=== PATIENT | female | born 1960 | race Caucasian/White ===

== ENCOUNTER 2016-07-25 18:48 | Emergency (ER) | payer MEDICARE, MEDICAID ==
[2016-07-25 19:05] VITALS: BP 142/99
--- NOTE | 2016-07-25 19:11 | ER Document Report ---
Addendum entered and electronically signed by CARLA MANNING NP 19:18: Doctor's Note Notes: 07/25/16 19:18 Patient's daughter was in the emergency room stated that she would be responsible for the patient. Patient is only had 2 mg of Benadryl. Patient is signed out AMA Original Note: ED Medical Screen (RME) - General Stated Complaint: PSYCH EVAL Time seen by provider: 19:07 Mode of Arrival: Ambulatory Information source: Patient Notes: 56-year-old female presents to ED states she needs to talk to a psychiatrist. Stated she was really upset earlier took 2 sleeping pills and made a common at of killing herself and she is okay now she states. Patient says she is fine now and would like to go home. She states she just buried her dad on Tuesday. She said her sister's called and stated that her father who was with the head this inherited her so that it would not mess up her social security and the sister's inherited all the money. States she's just been feeling "left out"and now she has to live without the rest of her life her sister on that in her face. She states she had mated multiple text statements but now she is done everybody she's fine. Her daughter is with her at this time. She states she already talked to the police and they told her that was fine. I have greeted and performed a rapid initial assessment of this patient. A comprehensive ED assessment and evaluation of the patient, analysis of test results and completion of medical decision making process will be conducted by an additional ED providers. TRAVEL OUTSIDE OF THE [place] IN LAST 30 DAYS: No - Related Data Allergies/Adverse Reactions: haloperidol [From Haldol] Allergy (Verified 07/25/16 19:06) haloperidol lactate [From Haldol] Allergy (Verified 07/25/16 19:06) Past Medical History - Past Medical History Cardiac Medical History: Reports: Hx Heart Attack - 2003 Denies: Hx Coronary Artery Disease, Hx Hypertension Pulmonary Medical History: Reports: Hx Asthma, Hx COPD Denies: Hx Bronchitis, Hx Pneumonia Neurological Medical History: Reports: Hx Cerebrovascular Accident - left sided weakness 2003. Denies: Hx Seizures GI Medical History: Reports: Hx Hiatal Hernia Musculoskeltal Medical History: Denies Hx Arthritis Psychiatric Medical History: Reports: Hx Depression Past Surgical History: Reports: Hx Cholecystectomy, Hx Hysterectomy - Immunizations Hx Diphtheria, Pertussis, Tetanus Vaccination: No Physical Exam - Vital signs Vitals: Temp Pulse Resp BP Pulse Ox 98.4 F 118 H 18 142/99 H 97 07/25/16 19:04 07/25/16 19:04 07/25/16 19:04 07/25/16 19:04 07/25/16 19:04 Course - Vital Signs Vital signs: Temp Pulse Resp BP Pulse Ox 98.4 F 118 H 18 142/99 H 97 07/25/16 19:04 07/25/16 19:04 07/25/16 19:04 07/25/16 19:04 07/25/16 19:04
== END 2016-07-25 19:18 | disposition left against medical advice (07) ==
LOC: ER 18:48
DX: Z53.9 Procedure and treatment not carried out, unspecified reason (principal); R45.851 Suicidal ideations
CPT/HCPCS: 99283

== ENCOUNTER → 2016-09-09 | Outpatient (CLI) | payer MEDICARE, MEDICAID | LOC: OD 15:24 | PROVIDERS: ATTEND Internal Medicine | DX: M79.672 Pain in left foot (principal) ==

== ENCOUNTER → 2016-09-16 | Outpatient (CLI) | payer MEDICARE, MEDICAID | LOC: WI 13:51 | PROVIDERS: ATTEND Internal Medicine | DX: Z12.31 Encounter for screening mammogram for malignant neoplasm of breast (principal) | CPT/HCPCS: 77067; G0202 ==

== ENCOUNTER → 2016-11-18 | Outpatient (CLI) | payer MEDICARE, MEDICAID ==
[2016-11-18 12:22] LABS: ABSOLUTE BASOPHILS # (AUTO) 0.1 10^3/uL (0.0-0.2); ABSOLUTE EOSINOPHILS # (AUTO) 0.1 10^3/uL (0.0-0.6); ABSOLUTE LYMPHOCYTES (AUTO) 1.6 10^3/uL (0.5-4.7); ABSOLUTE MONOCYTES (AUTO) 0.4 10^3/uL (0.1-1.4); ABSOLUTE NEUT (AUTO) 3.9 10^3/uL (1.7-8.2); EOSINOPHILS % (AUTO) 1.2 % (0-6); HEMATOCRIT 41.6 % (36.0-47.0); HEMOGLOBIN 13.3 g/dL (12.0-15.5); HGB HCT DIFFERENCE -1.7; LYMPHOCYTES % (AUTO) 26.2 % (13-45); MEAN CORPUSCULAR HEMOGLOBIN 28.9 pg (27.0-33.4); MEAN CORPUSCULAR HGB CONC 32.1 g/dL (32.0-36.0); MEAN CORPUSCULAR VOLUME 90 fl (80-97); MONOCYTES % (AUTO) 6.2 % (3-13); RED BLOOD COUNT 4.62 10^6/uL (3.72-5.28); RED CELL DISTRIBUTION WIDTH 13.1 % (11.5-14.0); SEGMENTED NEUTROPHILS % (AUTO) 65.4 % (42-78)
[2016-11-18 12:48] LABS: ALANINE AMINOTRANSFERASE 20 U/L (9-52); ALBUMIN 4.1 g/dL (3.5-5.0); ALKALINE PHOSPHATASE 78 U/L (38-126); ANION GAP 11 (5-19); ASPARTATE AMINO TRANSFERASE 22 U/L (14-36); BILIRUBIN,DIRECT 0.3 mg/dL (0.0-0.4); BILIRUBIN,TOTAL 0.6 mg/dL (0.2-1.3); BLOOD UREA NITROGEN 9 mg/dL (7-20); CALCIUM 9.5 mg/dL (8.4-10.2); CARBON DIOXIDE 23 mmol/L (22-30); CHLORIDE 110 mmol/L (98-107); CHOLESTEROL 206.02 mg/dL (0-200); CREATININE RESULT 0.79 mg/dL (0.52-1.25); Direct HDL 53 mg/dL (>40); GLUCOSE 98 mg/dL (75-110); POTASSIUM 4.5 mmol/L (3.6-5.0); SODIUM 143.5 mmol/L (137-145); TOTAL PROTEIN 7.2 g/dL (6.3-8.2); TRIGLYCERIDES 122 mg/dL (<150)
[2016-11-18 13:03] LABS: DIRECT LDL 119 mg/dL (<100)
== END ==
LOC: OD 10:32
PROVIDERS: ATTEND Physician Assistant Medical
DX: R07.9 Chest pain, unspecified (principal); R55 Syncope and collapse; I10 Essential (primary) hypertension; R00.1 Bradycardia, unspecified; R00.2 Palpitations; R06.00 Dyspnea, unspecified
CPT/HCPCS: 36415; 80053; 80061; 85025; 86430

== ENCOUNTER → 2017-03-03 | Outpatient (CLI) | payer MEDICARE, MEDICAID ==
--- NOTE | 2017-03-03 10:23 | WOMENS IMAGING REPORT ---
EXAM DESCRIPTION: 3D DX MAMMO BILAT; U/S BREAST UNILAT LIMITED COMPLETED DATE/TIME: 03/03/2017 9:08 am; 03/03/2017 10:06 am REASON FOR STUDY: UNSPECIFIED LUMP IN BREAST; N63; RT BREAST LUMP, N63 COMPARISON: 09/16/2016 and 08/05/2015. TECHNIQUE: Standard craniocaudal and mediolateral oblique views of each breast recorded using digita l acquisition and breast tomosynthesis. Additional true lateral images of the right breast acquired with tomosynthesis. LIMITATIONS: None. FINDINGS: RIGHT BREAST MASSES: No suspicious masses. CALCIFICATIONS: No new or suspicious calcifications. ARCHITECTURAL DISTORTION: None. DEVELOPING DENSITY: None. ASYMMETRY: None noted. OTHER: No other significant findings. LEFT BREAST MASSES: No suspicious masses. CALCIFICATIONS: No new or suspicious calcifications. ARCHITECTURAL DISTORTION: None. DEVELOPING DENSITY: None. ASYMMETRY: None noted. OTHER: No other significant finding. Read with the assistance of CAD: .[facility] - R2 Cenova Version 1.3 .[facility] - R2 Cenova Version 1.3 .[facility] - R2 Cenova Version 2.4 .[facility] - R2 Cenova Version 2.4 .[facility] - R2 Compound Specialist Version 9.2 BREAST ULTRASOUND: TECHNIQUE: Static and dynamic grayscale images acquired of the right breast in the specific areas of clinical/mammographic concern. Selected color Doppler images recorded. ELASTOGRAPHY PERFORMED: No. LIMITATIONS: None. FINDINGS: MASS: No mass identified. Normal glandular tissue. ELASTOGRAPHY CHARACTERISTICS: Not applicable. OTHER: No other significant finding. IMPRESSION: Stable mammographic appearance of both breasts. No worrisome mammographic or sonographi c findings in the right breast in the area of concern. BREAST DENSITY: c. The breasts are heterogeneously dense, which may obscure small masses. BIRAD: 2 Benign findings. RECOMMENDATION: RECOMMENDED FOLLOW UP: Birads 1 or 2: No breast imaging finding to explain the patie nt's presenting complaint. Further intervention should be based on the degree of clinical suspicion. SPECIFIC INTERVENTION/IMAGING/CONSULTATION RECOMMENDED:No additional intervention/ imaging/consultati on needed at this time. COMMUNICATION:The negative/benign results were communicated to the patient. COMMENT: The patient has been notified of the results by letter per SA requirements. Additional no tification policies are in place for contacting patient with suspicious or incomplete findings. Quality ID #[id number]: The [employer] recommends an annual screening mammogram for women aged 40 years or over. This facility utilizes a reminder system to ensure that all patients receive reminder letters, and/or direct phone calls for appointments. This includes reminders for routine scr eening mammograms, diagnostic mammograms, or other Breast Imaging Interventions when appropriate. Th is patient will be placed in the appropriate reminder system. The [place] [employer] (ACR) has developed recommendations for screening MRI of the breast s in certain patient populations, to be used in conjunction with mammography. Breast MRI surveillanc e may be appropriate for women with more than 20% lifetime risk of developing breast cancer as deter mined by genetic testing, significant family history of the disease, or history of mantle radiation f or Hodgkins Disease. ACR Practice Guidelines 2008. DBT Technology DBT is a type of tomographic mammography. With conventional mammography, overlapping breast tissue ma y make lesions difficult to detect, even with good compression. DBT uses an x-ray tube that rotates a round the breast, taking images at different angles. These images are then combined to create thin sl ices of the breast that the radiologist can view as a 3D reconstruction. The TRIXand[employer] unit can perform full-field digital mammograms (2D imaging); or DBT (3D imaging); or both, in a combination mode that quickly performs both the mammogram and the tomosynthesis scan while the breast is still compressed. PQRS 6045F: Fluoroscopic imaging is not utilized for breast tomosynthesis. TECHNICAL DOCUMENTATION: FINDING NUMBER: (1) ASSESSMENT: (1) JOB ID: [id number] [employer]- All Rights Reserved
--- NOTE | 2017-03-03 10:23 | WOMENS IMAGING REPORT ---
EXAM DESCRIPTION: 3D DX MAMMO BILAT; U/S BREAST UNILAT LIMITED COMPLETED DATE/TIME: 03/03/2017 9:08 am; 03/03/2017 10:06 am REASON FOR STUDY: UNSPECIFIED LUMP IN BREAST; N63; RT BREAST LUMP, N63 COMPARISON: 09/16/2016 and 08/05/2015. TECHNIQUE: Standard craniocaudal and mediolateral oblique views of each breast recorded using digita l acquisition and breast tomosynthesis. Additional true lateral images of the right breast acquired with tomosynthesis. LIMITATIONS: None. FINDINGS: RIGHT BREAST MASSES: No suspicious masses. CALCIFICATIONS: No new or suspicious calcifications. ARCHITECTURAL DISTORTION: None. DEVELOPING DENSITY: None. ASYMMETRY: None noted. OTHER: No other significant findings. LEFT BREAST MASSES: No suspicious masses. CALCIFICATIONS: No new or suspicious calcifications. ARCHITECTURAL DISTORTION: None. DEVELOPING DENSITY: None. ASYMMETRY: None noted. OTHER: No other significant finding. Read with the assistance of CAD: .[facility] - R2 Cenova Version 1.3 .[facility] - R2 Cenova Version 1.3 .[facility] - R2 Cenova Version 2.[address] - R2 Cenova Version 2.4 .[facility] - R2 Steel Floor Pan Placing Supervisor Version 9.2 BREAST ULTRASOUND: TECHNIQUE: Static and dynamic grayscale images acquired of the right breast in the specific areas of clinical/mammographic concern. Selected color Doppler images recorded. ELASTOGRAPHY PERFORMED: No. LIMITATIONS: None. FINDINGS: MASS: No mass identified. Normal glandular tissue. ELASTOGRAPHY CHARACTERISTICS: Not applicable. OTHER: No other significant finding. IMPRESSION: Stable mammographic appearance of both breasts. No worrisome mammographic or sonographi c findings in the right breast in the area of concern. BREAST DENSITY: c. The breasts are heterogeneously dense, which may obscure small masses. BIRAD: 2 Benign findings. RECOMMENDATION: RECOMMENDED FOLLOW UP: Birads 1 or 2: No breast imaging finding to explain the patie nt's presenting complaint. Further intervention should be based on the degree of clinical suspicion. SPECIFIC INTERVENTION/IMAGING/CONSULTATION RECOMMENDED:No additional intervention/ imaging/consultati on needed at this time. COMMUNICATION:The negative/benign results were communicated to the patient. COMMENT: The patient has been notified of the results by letter per SA requirements. Additional no tification policies are in place for contacting patient with suspicious or incomplete findings. Quality ID #[id number]: The [employer] recommends an annual screening mammogram for women aged 40 years or over. This facility utilizes a reminder system to ensure that all patients receive reminder letters, and/or direct phone calls for appointments. This includes reminders for routine scr eening mammograms, diagnostic mammograms, or other Breast Imaging Interventions when appropriate. Th is patient will be placed in the appropriate reminder system. The [employer] (ACR) has developed recommendations for screening MRI of the breast s in certain patient populations, to be used in conjunction with mammography. Breast MRI surveillanc e may be appropriate for women with more than 20% lifetime risk of developing breast cancer as deter mined by genetic testing, significant family history of the disease, or history of mantle radiation f or Hodgkins Disease. ACR Practice Guidelines 2008. DBT Technology DBT is a type of tomographic mammography. With conventional mammography, overlapping breast tissue ma y make lesions difficult to detect, even with good compression. DBT uses an x-ray tube that rotates a round the breast, taking images at different angles. These images are then combined to create thin sl ices of the breast that the radiologist can view as a 3D reconstruction. The [employer] unit can perform full-field digital mammograms (2D imaging); or DBT (3D imaging); or both, in a combination mode that quickly performs both the mammogram and the tomosynthesis scan while the breast is still compressed. PQRS 6045F: Fluoroscopic imaging is not utilized for breast tomosynthesis. TECHNICAL DOCUMENTATION: FINDING NUMBER: (1) ASSESSMENT: (1) JOB ID: [id number] [employer]- All Rights Reserved
== END ==
LOC: WI 09:29
PROVIDERS: ATTEND Surgery
DX: N63 Unspecified lump in breast (principal)
CPT/HCPCS: 76642; G0279; G0204; 77062; 77066

== ENCOUNTER 2017-03-04 16:46 | Inpatient (IN) | payer MEDICARE, MEDICAID ==
[2017-03-04] MEDS ORDERED: LORAZEPAM 1 MG TABLET ONE (18:10)
[2017-03-04 18:18] LABS: HEMOGLOBIN 12.3 g/dL (12.0-15.5); HGB HCT DIFFERENCE 0.9; MEAN CORPUSCULAR HEMOGLOBIN 29.8 pg (27.0-33.4); MEAN CORPUSCULAR HGB CONC 34.2 g/dL (32.0-36.0); MEAN CORPUSCULAR VOLUME 87 fl (80-97); RED BLOOD COUNT 4.13 10^6/uL (3.72-5.28); RED CELL DISTRIBUTION WIDTH 13.8 % (11.5-14.0); WHITE BLOOD COUNT 6.7 10^3/uL (4.0-10.5)
[2017-03-04] MEDS ORDERED: LORAZEPAM 1 MG TABLET PO ONE (18:45)
[2017-03-04 18:46] LABS: ALANINE AMINOTRANSFERASE 30 U/L (9-52); ALKALINE PHOSPHATASE 76 U/L (38-126); AMYLASE 47 U/L (30-110); ANION GAP 12 (5-19); ASPARTATE AMINO TRANSFERASE 33 U/L (14-36); BILIRUBIN,DIRECT 0.3 mg/dL (0.0-0.4); BILIRUBIN,TOTAL 0.5 mg/dL (0.2-1.3); BLOOD UREA NITROGEN 7 mg/dL (7-20); CALCIUM 9.7 mg/dL (8.4-10.2); CARBON DIOXIDE 23 mmol/L (22-30); CHLORIDE 107 mmol/L (98-107); CREATININE RESULT 0.76 mg/dL (0.52-1.25); GLUCOSE 97 mg/dL (75-110); LIPASE 53.4 U/L (23-300); SODIUM 141.5 mmol/L (137-145); TOTAL PROTEIN 6.4 g/dL (6.3-8.2)
--- NOTE | 2017-03-04 19:09 | RADIOLOGY REPORT (SQ) ---
EXAM DESCRIPTION: CHEST SINGLE VIEW COMPLETED DATE/TIME: 03/04/2017 6:58 pm REASON FOR STUDY: central line placement COMPARISON: 02/17/2016 EXAM PARAMETERS: NUMBER OF VIEWS: One view. TECHNIQUE: Single frontal radiographic view of the chest acquired. RADIATION DOSE: NA LIMITATIONS: None. FINDINGS: LUNGS AND PLEURA: Stable calcified granulomas right lower lobe. No opacities, masses or p neumothorax. No pleural effusion. MEDIASTINUM AND HILAR STRUCTURES: No masses. Contour normal. HEART AND VASCULAR STRUCTURES: Heart normal in size. Normal vasculature. BONES: No acute findings. HARDWARE: Right central venous catheter terminating within the mid SVC. OTHER: No other significant finding. IMPRESSION: SATISFACTORY PLACEMENT RIGHT CENTRAL VENOUS CATHETER WITHOUT COMPLICATION. NO ACUTE CAR DIOPULMONARY PROCESS. TECHNICAL DOCUMENTATION: JOB ID: [id number]
[2017-03-04] MEDS: NORMAL SALINE 1000 ML 1,000 ML IV PRN (19:57)
--- NOTE | 2017-03-04 20:02 | OPERATIVE REPORT E ---
Operative Report NAME: SHELL RAMOS : 1960 AGE: 56Y DATE OF SURGERY: 03/04/2017 ROOM: [id number] PREOPERATIVE DIAGNOSIS: Poor veins for IV access and needed a central line. POSTOPERATIVE DIAGNOSIS: Poor veins for IV access and needed a central line. OPERATION: Placement of right subclavian catheter. SURGEON: BLANCA LIN M.D. ANESTHESIA: Local. INDICATION: This is a 56-year-old female who came in with nausea and vomiting after a Sylvia fundoplication about a month ago. The nurses had been trying to put a peripheral line in her arms and unable to do so and, therefore, needed a central line. DESCRIPTION OF PROCEDURE: The patient placed supine in slight Trendelenburg position. The upper chest and neck were then prepped and draped in the usual sterile fashion. Local anesthesia infiltrated in the right lateral infraclavicular area and the right subclavian vein was then punctured and a guidewire placed through the needle towards the presumed superior vena cava and puncture site subsequently dilated. Next a triple-lumen catheter was then inserted through the guidewire up to a distance of 15 cm. Next, the guidewire was removed and ports irrigated nicely and aspirated blood easily. The catheter was then anchored to the skin with 3-0 nylon. A Biopatch was then placed at the insertion site and a transparent dressing placed over the Biopatch and catheter. A chest x-ray will be taken for placement. The patient tolerated the procedure well. DICTATING PHYSICIAN: BLANCA LIN M.D. [id number] PHY#: [id number] ID: [id number] JOB#: [id number] ACCT: [id number] cc:BLANCA LIN M.D. >
--- NOTE | 2017-03-04 20:34 | RADIOLOGY REPORT (SQ) ---
EXAM DESCRIPTION: CT ABD/PELVIS WITH IV ONLY COMPLETED DATE/TIME: 03/04/2017 8:22 pm REASON FOR STUDY: vomiting, abdominal pain R11.10 VOMITING, UNSPECIFIED COMPARISON: Correlation made to CT chest from 08/20/2015 TECHNIQUE: CT scan of the abdomen and pelvis performed using helical scanning technique with dynamic intravenous contrast injection. No oral contrast. Images reviewed with lung, soft tissue, and bone windows. Reconstructed coronal and sagittal MPR images reviewed. Delayed images for evaluation of the urinary system also acquired. All images stored on PACS. All CT scanners at this facility use dose modulation, iterative reconstruction, and/or weight based d osing when appropriate to reduce radiation dose to as low as reasonably achievable (ALARA). [facility]: Dose Right [facility]: CareDose [facility]: Dose Right [facility]: Teradose 4D [facility]: [employer] CONTRAST TYPE AND DOSE: 71 mL Isovue 370- low osmolar. RENAL FUNCTION: GFR > 60. RADIATION DOSE: . LIMITATIONS: None. FINDINGS: LOWER CHEST: No significant findings. Stable calcified nodules right lung compatible with prior granulomatous disease. Stable postsurgical change related to gastric fundoplication with some material distending the distal esophagus. LIVER: Normal size. No masses. No dilated ducts. SPLEEN: Normal size. No focal lesions. PANCREAS: No masses. No significant calcifications. No adjacent inflammation or peripancreatic fluid collections. Pancreatic duct not dilated. GALLBLADDER: Surgically absent. ADRENAL GLANDS: No significant masses or asymmetry. RIGHT KIDNEY AND URETER: No solid masses. No significant calcifications. No hydronephrosis or hyd roureter. LEFT KIDNEY AND URETER: No solid masses. No significant calcifications. No hydronephrosis or hydr oureter. AORTA AND VESSELS: Scattered atherosclerotic calcifications. No aneurysm. No dissection. Renal arter ies, SMA, celiac without stenosis. RETROPERITONEUM: No retroperitoneal adenopathy, hemorrhage or masses. BOWEL AND PERITONEAL CAVITY: No masses or inflammatory changes. No free fluid or peritoneal masses. APPENDIX: Normal. PELVIS: No mass. No free fluid. Normal bladder. ABDOMINAL WALL: No masses. No significant hernias. BONES: Degenerative change without fracture or suspicious osseous lesion. OTHER: No other significant finding. IMPRESSION: NO ACUTE INFLAMMATORY CHANGE IDENTIFIED WITHIN THE ABDOMEN OR PELVIS. STABLE POSTSURGICAL CHANGE RELATED TO NATALIE FUNDOPLICATION WITH MATERIAL SEEN IN THE DISTAL ESOPHAGU S COULD BE DUE TO REFLUX OR FOOD IMPACTION. CORRELATE WITH PHYSICAL EXAM FINDINGS/SYMPTOMS. TECHNICAL DOCUMENTATION: JOB ID: [id number] Quality ID # [id number]: Final reports with documentation of one or more dose reduction techniques (e.g., Au tomated exposure control, adjustment of the mA and/or kV according to patient size, use of iterative reconstruction technique) 2010 [employer]- All Rights Reserved
[2017-03-04] MEDS: LORAZEPAM INJ 2 MG/1 ML VIAL IV PRN (21:36)
[2017-03-04 21:38] LABS: APPEARANCE,URINE CLOUDY; BILIRUBIN,URINE SMALL (NEGATIVE); CALCIUM OXALATE CRYSTALS,URINE TOO NUMEROUS TO CNT /HPF; GLUCOSE, URINE NEGATIVE (NEGATIVE); KETONES,URINE NEGATIVE (NEGATIVE); LEUKOCYTE ESTERASE,URINE SMALL (NEGATIVE); NITRITE,URINE NEGATIVE (NEGATIVE); PROTEIN,URINE 30 mg/dL (NEGATIVE); URINE SPECIFIC GRAVITY 1.027; UROBILINOGEN,URINE NEGATIVE mg/dL (<2.0)
[2017-03-04] MEDS ORDERED: PANTOPRAZOLE SODIUM 40 MG VIAL IV ONE (22:00)
[2017-03-04] MEDS: ONDANSETRON HCL INJ/PF 4 MG/2 ML SDV IV PRN (22:20)
[2017-03-05] MEDS: LORAZEPAM INJ 2 MG/1 ML VIAL IV PRN ×4 (04:59→23:23)
[2017-03-05] MEDS: ONDANSETRON HCL INJ/PF 4 MG/2 ML SDV IV PRN ×3 (04:59→20:02)
[2017-03-05] MEDS: NORMAL SALINE 1000 ML 1,000 ML IV PRN (05:05)
[2017-03-05] MEDS: PANTOPRAZOLE SODIUM 40 MG VIAL IV SCH (11:22)
--- NOTE | 2017-03-05 12:11 | PDOC H&P ---
History of Present Illness Admission Date/PCP: 03/04/17 16:46 SHEILA NOWAK MD History of Present Illness: SHELL RAMOS is a 56 year old female, she came to the office for evaluation of persistent vomiting, she recently had fundoplication done on 01/28/2017. She said in the last few days she has not been able to keep any food down, she was frustrated in the office she said she is unable to live like this any longer that we need to do something about this persistent vomiting, she was admitted directly from the office into the hospital for evaluation of her symptoms. A CAT scan of the abdomen and pelvis with IV contrast was done. It showed stable postsurgical change related to gastric fundoplication with some material distending the distal esophagus. I spoke to the toe closing machine tender, Dr. Barba, is suggested she get a barium swallow because she probably may have food impaction from the recent fundoplication. Past Medical History Cardiac Medical History: Reports: Myocardial Infarction - 2003 Pulmonary Medical History: Reports: Asthma, Chronic Obstructive Pulmonary Disease (COPD) GI Medical History: Reports: Hiatal Hernia Psychiatric Medical History: Reports: Depression Hematology: Denies: Anemia Past Surgical History Past Surgical History: Reports: Cholecystectomy, Hysterectomy Social History Smoking Status: Current Every Day Smoker Cigarettes Packs Per Day: 1.5 Frequency of Alcohol Use: None Hx Recreational Drug Use: No Drugs: Marijuana Hx Prescription Drug Abuse: No Family History Family History: Reviewed & Not Pertinent Parental Family History Reviewed: Yes Children Family History Reviewed: Yes Sibling(s) Family History Reviewed.: Yes Medication/Allergy Home Medications: Azithromycin [Zithromax 250 mg Tablet] 500 mg PO DAILY 03/05/17 Metronidazole [Flagyl 500 mg Tablet] 500 mg PO Q8 03/05/17 Omeprazole 40 mg PO DAILY 03/05/17 Allergies/Adverse Reactions: haloperidol [From Haldol] Allergy (Verified 07/25/16 19:06) haloperidol lactate [From Haldol] Allergy (Verified 07/25/16 19:06) Review of Systems Constitutional: ABSENT: chills, fever(s), headache(s), weight gain, weight loss Eyes: ABSENT: visual disturbances Ears: ABSENT: hearing changes Cardiovascular: ABSENT: chest pain, dyspnea on exertion, edema, orthropnea, palpitations Respiratory: ABSENT: cough, hemoptysis Gastrointestinal: PRESENT: abdominal pain, vomiting Genitourinary: ABSENT: dysuria, hematuria Musculoskeletal: ABSENT: joint swelling Integumentary: ABSENT: rash, wounds Neurological: ABSENT: abnormal gait, abnormal speech, confusion, dizziness, focal weakness, syncope Psychiatric: ABSENT: anxiety, depression, homidical ideation, suicidal ideation Endocrine: ABSENT: cold intolerance, heat intolerance, menstrual abnormalities, polydipsia, polyuria Hematologic/Lymphatic: ABSENT: easy bleeding, easy bruising, lymphadenopathy Physical Exam Vital Signs: Temp Pulse Resp BP Pulse Ox 98.7 F 66 18 115/67 90 L 03/05/17 08:08 03/05/17 08:08 03/05/17 08:08 03/05/17 08:08 03/05/17 08:08 Intake & Output 03/04/17 03/05/17 03/06/17 06:59 06:59 06:59 Intake Total 913 Output Total 230 Balance 683 Weight 100.5 kg General appearance: PRESENT: no acute distress, well-developed, well-nourished Head exam: PRESENT: atraumatic, normocephalic Eye exam: PRESENT: conjunctiva pink, EOMI, PERRLA Ear exam: PRESENT: normal external ear exam Mouth exam: PRESENT: moist, tongue midline Neck exam: PRESENT: full ROM Cardiovascular exam: PRESENT: RRR, +S1, +S2 Pulses: PRESENT: normal dorsalis pedis pul, +2 pedal pulses bilateral Vascular exam: PRESENT: normal capillary refill GI/Abdominal exam: PRESENT: normal bowel sounds, soft. ABSENT: ascites, diminished bowel sounds, distended, firm, guarding, hernia, hyperactive bowel sounds, hypoactive bowel sounds, mass, Cummings's sign, organolmegaly, rebound, rigid, tenderness, other Rectal exam: PRESENT: deferred Neurological exam: PRESENT: alert, awake, oriented to person, oriented to place , oriented to time, oriented to situation, CN II-XII grossly intact Psychiatric exam: PRESENT: anxious Skin exam: PRESENT: dry, intact, warm Results Laboratory Results: 03/04/17 18:04 03/04/17 18:04 03/04/17 03/04/17 03/04/17 18:04 18:04 21:11 WBC 6.7 RBC 4.13 Hgb 12.3 Hct 36.0 MCV 87 MCH 29.8 MCHC 34.2 RDW 13.8 Plt Count 229 Sodium 141.5 Potassium 4.0 Chloride 107 Carbon Dioxide 23 Anion Gap 12 BUN 7 Creatinine 0.76 Est GFR ( Amer) > 60 Est GFR (Non-Af Amer) > 60 Glucose 97 Calcium 9.7 Total Bilirubin 0.5 AST 33 ALT 30 Alkaline Phosphatase 76 Total Protein 6.4 Albumin 4.0 Amylase 47 Lipase 53.4 Urine Color ASHLEY Urine Appearance CLOUDY Urine pH 6.0 Ur Specific [place] 1.027 Urine Protein 30 H Urine Glucose (UA) NEGATIVE Urine Ketones NEGATIVE Urine Blood NEGATIVE Urine Nitrite NEGATIVE Ur Leukocyte Esterase SMALL H Urine WBC (Auto) 14 Urine RBC (Auto) 3 Impressions: Chest X-Ray 03/04/17 00:00 IMPRESSION: SATISFACTORY PLACEMENT RIGHT CENTRAL VENOUS CATHETER WITHOUT COMPLICATION. NO ACUTE CARDIOPULMONARY PROCESS. Abdomen/Pelvis CT 03/04/17 17:15 IMPRESSION: NO ACUTE INFLAMMATORY CHANGE IDENTIFIED WITHIN THE ABDOMEN OR PELVIS. STABLE POSTSURGICAL CHANGE RELATED TO SYLVIA FUNDOPLICATION WITH MATERIAL SEEN IN THE DISTAL ESOPHAGUS COULD BE DUE TO REFLUX OR FOOD IMPACTION. CORRELATE WITH PHYSICAL EXAM FINDINGS/SYMPTOMS. Assessment & Plan - Diagnosis (1) Vomiting Qualifiers: Vomiting type: unspecified Vomiting Intractability: intractable Nausea presence: with nausea Qualified Code(s): R11.2 - Nausea with vomiting, unspecified Is this a current diagnosis for this admission?: Yes Plan: Patient was admitted for the evaluation and management of persistent vomiting, she is status post fundoplication, she stated that she is not able to keep any food down. The CAT scan of the abdomen and pelvis that was done suggest food impaction. A barium swallow is ordered (2) Status post Sylvia fundoplication Is this a current diagnosis for this admission?: Yes
--- NOTE | 2017-03-05 15:14 | RADIOLOGY REPORT (SQ) ---
EXAM DESCRIPTION: BARIUM SWALLOW ESOPHAGUS COMPLETED DATE/TIME: 03/05/2017 2:51 pm REASON FOR STUDY: dysphagia R11.10 VOMITING, UNSPECIFIED R10.9 UNSPECIFIED ABDOMINAL PAIN COMPARISON: None. TECHNIQUE: Under fluoroscopic guidance, patient ingested water soluble contrast. Fluoroscopic spot i mages and routine radiographic images acquired and stored on PACS. 12 MM BARIUM TABLET GIVEN: No. LIMITATIONS: See below. FLUOROSCOPY TIME: 1 minutes 37 seconds Multiple fluoroscopic images saved to PACS. FINDINGS: Initial swallowing with normal esophageal motility. Patient immediately vomited. Intact fundoplication. Contrast flows into the stomach and duodenum. IMPRESSION: Intact fundoplication with spontaneous vomiting. COMMENT: Quality ID [id number]: Final reports for procedures using fluoroscopy that document radiation exp osure indices, or exposure time and number of fluorographic images (if radiation exposure indices are not available) TECHNICAL DOCUMENTATION: JOB ID: [id number] [employer]- All Rights Reserved
[2017-03-06] MEDS: NORMAL SALINE 1000 ML 1,000 ML IV PRN (02:00)
[2017-03-06] MEDS: ONDANSETRON HCL INJ/PF 4 MG/2 ML SDV IV PRN (08:43)
[2017-03-06] MEDS: LORAZEPAM INJ 2 MG/1 ML VIAL IV PRN ×3 (08:43→17:41)
[2017-03-06] MEDS: PANTOPRAZOLE SODIUM 40 MG VIAL IV SCH (09:31)
--- NOTE | 2017-03-06 13:48 | PDOC TRANSFER SUMMARY ---
General Admission Date/PCP: 03/04/17 16:46 SHEILA NOWAK MD Admission Date: 03/04/17 Transfer Date: 03/06/17 Accepting Facility: [facility] Resuscitation Status: Full Code - Transfer Diagnosis (1) Vomiting Is this a current diagnosis for this admission?: Yes (2) Status post Sylvia fundoplication Is this a current diagnosis for this admission?: Yes - Transfer Medications Home Medications: Omeprazole 40 mg PO DAILY 03/05/17 Transfer Medications: Current Medications Heparin Sodium (Porcine) (Heparin Flush 10 Unit/Ml 5 Ml Disp.Syrg) 30 unit IV Q8 ESTEFANY Stop: 04/03/17 21:59 Last Admin: 03/06/17 13:31 Dose: Not Given Heparin Sodium (Porcine) (Heparin Flush 10 Unit/Ml 5 Ml Disp.Syrg) 30 unit IV .AFTER EACH USE PRN PRN Reason: AFTER EACH INTERMITTENT USE Stop: 04/03/17 20:23 Sodium Chloride (Nacl 0.9% 1000 Ml Iv Soln) 1,000 mls @ 100 mls/hr IV CONTINUOUS PRN PRN Reason: THIS MED IS NOT "PRN" Stop: 04/03/17 17:32 Last Admin: 03/06/17 02:00 Dose: 1,000 ml Lorazepam (Ativan Inj 2 Mg/1 Ml Vial) 0.5 mg IV Q6HP PRN PRN Reason: ANXIETY/RESTLESSNESS Stop: 03/11/17 20:48 Last Admin: 03/06/17 12:54 Dose: 0.5 mg Ondansetron HCl (Zofran Inj/Pf 4 Mg/2 Ml Sdv) 4 mg IV Q6HP PRN PRN Reason: NAUSEA Stop: 04/03/17 21:13 Last Admin: 03/06/17 08:43 Dose: 4 mg Pantoprazole Sodium (Protonix Iv Inj 40 Mg Vial) 40 mg IV DAILY ESTEFANY Stop: 03/08/17 09:59 Last Admin: 03/06/17 09:31 Dose: 40 mg - Allergies Allergies/Adverse Reactions: haloperidol [From Haldol] Allergy (Verified 07/25/16 19:06) haloperidol lactate [From Haldol] Allergy (Verified 07/25/16 19:06) Hospital Course Hospital Course: Patient is a 56-year-old female she came to the office for evaluation of persistent vomiting, she recently had fundoplication on 01/28/2017 she did that she has not been able to keep any food down. A CAT scan of the abdomen and pelvis was done with IV contrast, it showed stable postsurgical changes noted to gastric fundoplication with some material distending the distal esophagus. I consulted with the stripper cutter machine who suggested that she get a barium swallow, barium swallow was done it showed normal esophageal motility intact fundoplication contrast flows into the stomach and duodenum freely. Patient was upset because of her persistent vomiting and she was requesting to be transferred to [facility]. I called the hospital and she was accepted in transfer. Physical Exam Vital Signs: Temp Pulse Resp BP Pulse Ox 98.8 F 80 20 100/82 94 03/06/17 12:06 03/06/17 12:06 03/06/17 12:06 03/06/17 12:06 03/06/17 12:06 Intake & Output 03/05/17 03/06/17 03/07/17 06:59 06:59 06:59 Intake Total 913 2366 Output Total 230 1900 Balance 683 466 Weight 100.5 kg 101.7 kg General appearance: PRESENT: no acute distress, well-developed, well-nourished Head exam: PRESENT: atraumatic, normocephalic Eye exam: PRESENT: conjunctiva pink, EOMI, PERRLA Ear exam: PRESENT: normal external ear exam Mouth exam: PRESENT: moist, tongue midline Respiratory exam: PRESENT: clear to auscultation los Cardiovascular exam: PRESENT: RRR Pulses: PRESENT: normal dorsalis pedis pul Vascular exam: PRESENT: normal capillary refill GI/Abdominal exam: PRESENT: normal bowel sounds, soft Rectal exam: PRESENT: deferred Extremities exam: PRESENT: full ROM Neurological exam: PRESENT: alert, awake, oriented to person, oriented to place , oriented to time, oriented to situation, CN II-XII grossly intact Psychiatric exam: PRESENT: appropriate affect, normal mood Skin exam: PRESENT: dry, intact, warm Results Laboratory Results: 03/04/17 18:04 03/04/17 18:04 Impressions: Chest X-Ray 03/04/17 00:00 IMPRESSION: SATISFACTORY PLACEMENT RIGHT CENTRAL VENOUS CATHETER WITHOUT COMPLICATION. NO ACUTE CARDIOPULMONARY PROCESS. Abdomen/Pelvis CT 03/04/17 17:15 IMPRESSION: NO ACUTE INFLAMMATORY CHANGE IDENTIFIED WITHIN THE ABDOMEN OR PELVIS. STABLE POSTSURGICAL CHANGE RELATED TO SYLVIA FUNDOPLICATION WITH MATERIAL SEEN IN THE DISTAL ESOPHAGUS COULD BE DUE TO REFLUX OR FOOD IMPACTION. CORRELATE WITH PHYSICAL EXAM FINDINGS/SYMPTOMS. Esophagus X-Ray 03/05/17 00:00 IMPRESSION: Intact fundoplication with spontaneous vomiting. Plan Discharge Plan: Patient to be transfer to [facility]
[2017-03-06 16:13] VITALS: BP 119/89
== END 2017-03-06 17:45 | disposition short-term general hospital (02) | DRG 392 ==
LOC: 3S 16:46 → OBSVTOIN 03-06 13:00
PROVIDERS: ADMIT Internal Medicine; ATTEND Internal Medicine
PROC: 02HV33Z Insertion of Infusion Device into Superior Vena Cava, Percutaneous Approach (ICD-10-PCS; principal; 2017-03-04)
DX: R11.10 Vomiting, unspecified (principal); J45.909 Unspecified asthma, uncomplicated; Z90.710 Acquired absence of both cervix and uterus; R10.9 Unspecified abdominal pain; F17.210 Nicotine dependence, cigarettes, uncomplicated; F32.9 Major depressive disorder, single episode, unspecified; E78.5 Hyperlipidemia, unspecified; I87.2 Venous insufficiency (chronic) (peripheral); Z98.890 Other specified postprocedural states; J44.9 Chronic obstructive pulmonary disease, unspecified; E03.9 Hypothyroidism, unspecified; F41.9 Anxiety disorder, unspecified; I25.2 Old myocardial infarction; Z90.49 Acquired absence of other specified parts of digestive tract; Z95.0 Presence of cardiac pacemaker; Z88.8 Allergy status to other drugs, medicaments and biological substances
CPT/HCPCS: 36415; 71010; 74177; 74220; 80048; 80076; 81001; 82150; 83690; 85027; 87086; 87088; 87186; C1751; G0378; J1642; J2060; J2405; J7030; S0164